=== PATIENT | male | born 1955 | race Two or more races ===

== ENCOUNTER 2025-05-30 12:50 | Outpatient (CLI) | payer MEDICARE, MEDICAID ==
[~2025-05-30] VITALS: Ht 165.1 cm; Wt 83.9 kg
[~2025-05-30 12:50] MED LIST: COR3.125T PO
[2025-05-30 13:22] LABS: ABG BASE EXCESS 0.6 mmol/L (-2.0-3.0); ABG HCO3 24.9 mmol/L (21.0-28.0); ABG OXYGEN SATURATION 96.3 % (94.0-98.0); ABG PCO2 (T) 38.8 mmHg (35.0-48.0); ABG PH (T) 7.425 (7.350-7.450); ABG PO2 (T) 85.0 mmHg (83.0-108.0); ALLEN'S TEST POSITIVE; FCOHb 0.3 % (0.5-1.5); FHHb 3.7 % (0.0-5.0); FIO2 21.0 mmHg/%; FMetHb 0.3 % (0.0-1.5); FO2Hb 95.7 % (94.0-98.0); MODE ROOM AIR; PATIENT TEMPERATURE 37.0; TOTAL HEMOGLOBIN 14.4 G/dl (13.5-17.5)
[2025-05-30] MEDS: albuterol 2.5 MG/3 ML nebule NEB ONE (13:57)
[2025-05-30 13:59] VITALS: PULSE 46; RESP 18; O2SAT 96
[2025-05-30 14:10] VITALS: PULSE 46; RESP 18
--- NOTE | 2025-05-30 14:58 | PROCEDURE NOTE - Respiratory ---
Procedure Note-Respiratory Providers to CC Copies To 1: WILIAN HICKS MD Procedure Name: This is a complete pulmonary function study dated May 30, 2025. Hemoglobin measurement was done as part of the study. There was also a room air blood gas obtained from this patient on the same date. Spirometry measurements: There is significant reduction in both the forced vital capacity and the FEV1 measurements. The FEV1 ratio is normal. Some of the flow rates are clearly reduced. After inhaled bronchodilator was administered, there is very little change in the flow volume curve. Lung volume measurements: The total lung capacity is at the lower limit of normal. The functional residual capacity is normal. The residual volume is in the high-normal range. Lung diffusion measurement: The DLCO measurement is reduced. It is noted that the KVO measurement is actually normal. It is the alveolar volume measurement that is showing reduction. It is noted that the hemoglobin measurement is normal. Airway resistance measurement: The airway resistance is mildly elevated. Overall conclusion: This study is abnormal. There is evidence for [id number] obstructive ventilatory defect. The DLCO measurement is mildly reduced. There is also evidence for mild restrictive ventilatory defect. The vital capacity is clearly reduced and the total lung capacity is at the lower limit of normal. Clinical correlation is suggested. We have no previous studies for comparison. Complete abstinence from cigarette smoking is recommended. A blood gas was drawn from this patient while the patient was breathing ambient air. The blood pH is normal. The pCO2 is normal. The room air PO2 is normal at 85 mmHg. KENNEY SNIDER MD May 30, 2025 14:58
== END 2025-05-30 23:59 | disposition home or self-care (01) ==
LOC: RT 12:50
PROVIDERS: ATTEND Internal Medicine Critical Care Medicine
DX: R06.02 Shortness of breath (principal)
CPT/HCPCS: 36600; 82803; 85018; 94060; 94727; 94729; 94760